=== PATIENT | female | born 1985 | race Caucasian/White ===

== ENCOUNTER 2016-08-17 23:25 | Outpatient (CLI) | payer BC ==
[~2016-08-17] VITALS: Ht 172.7 cm; Wt 83.6 kg
[2016-08-18] VITALS: BP 127/70
[2016-08-18] MEDS ORDERED: PREN-53 PO (00:50)
--- NOTE | 2016-08-18 11:33 | Physician Query-Final Dx ---
JANNET ARELLANO 08/18/16 1133: Clinic Account Progress/Dx Physician Query: Please give diagnosis Date of Service August 17, 2016 at 23:25 GREGOR JENNINGS MD 08/18/16 1224: Clinic Account Progress/Dx DIAGNOSIS: Diagnosis false labor JANNET ARELLANO August 18, 2016 11:33 GREGOR JENNINGS MD August 18, 2016 12:24
[2016-08-19] MEDS ORDERED: IBUP-1780 PO (07:54)
[2016-08-19] MEDS ORDERED: OXYC-465 PO (07:54)
[2016-08-19] MEDS ORDERED: DOCU100C37 PO (07:54)
== END 2016-08-18 00:55 | disposition home or self-care (01) ==
LOC: WSo 23:25 → LDRP 23:26 → WSo 08-18 00:55
PROVIDERS: ATTEND Obstetrics & Gynecology
DX: O47.1 False labor at or after 37 completed weeks of gestation (principal); Z3A.37 37 weeks gestation of pregnancy
CPT/HCPCS: 99213

== ENCOUNTER 2016-08-18 16:09 | Inpatient (IN) | payer BC ==
[2016-08-18] VITALS (13 sets, daily range): BP systolic 112–146; BP diastolic 60–78
[~2016-08-18] VITALS: Ht 172.7 cm; Wt 83.5 kg
[~2016-08-18 16:09] MED LIST: PREN-53 PO
[2016-08-18] MEDS ORDERED: D5 LR IV SOLUTION 1,000 ML IV SCH (17:08)
[2016-08-18] MEDS ORDERED: LACTATED RINGERS 1,000 ML IV SCH (17:15)
[2016-08-18] MEDS ORDERED: fentaNYL INJECTION 100 MCG/2 ML AMP ONE (17:25)
[2016-08-18] MEDS ORDERED: BUPIVACAINE 0.25% 30 ML (SENSORCAINE) VIAL ONE (17:25)
[2016-08-18] MEDS ORDERED: OXYTOCIN/NORMAL SALINE 500 ML IV ONE (17:26)
[2016-08-18 17:27] LABS: BASOPHILS % (AUTO) 0 % (0-10); EOSINOPHILS # (AUTO) 0.1 10^3/uL (0.0-0.3); EOSINOPHILS % (AUTO) 0 % (0-10); LYMPHOCYTES # (AUTO) 2.7 X 10^3 (1.0-4.0); LYMPHOCYTES % (AUTO) 20 % (12-44); MEAN CORPUSCULAR HEMOGLOBIN 29 PG (25-34); MEAN CORPUSCULAR HGB CONC 32 G/DL (32-36); MEAN CORPUSCULAR VOLUME 90 FL (80-99); MEAN PLATELET VOLUME 10.5 FL (7.4-10.4); MONOCYTES # (AUTO) 1.1 X 10^3 (0.0-1.0); MONOCYTES % (AUTO) 8 % (0-12); NEUTROPHILS # (AUTO) 9.5 X 10^3 (1.8-7.8); NEUTROPHILS % (AUTO) 71 % (42-75); PLATELET COUNT 316 10^3/uL (130-400); RED BLOOD COUNT 3.72 10^6/uL (4.35-5.85); RED CELL DISTRIBUTION WIDTH 12.7 % (10.0-14.5); WHITE BLOOD COUNT 13.5 10^3/uL (4.3-11.0)
[2016-08-18] MEDS ORDERED: LIDOCAINE/EPI 1%-1:200,000 (XYLOCAINE) 30 ML VIAL ONE (17:29)
[2016-08-18] MEDS ORDERED: LIDOCAINE/EPI 1%-1:200,000 (XYLOCAINE) 30 ML VIAL INJ ONE (17:30)
[2016-08-18] MEDS ORDERED: BENZOCAINE/MENTHOL (DERMOPLAST) 56 ML CAN TP ONE (18:14)
[2016-08-18] MEDS ORDERED: WITCH HAZEL(TUCKS) 40 EA JAR ONE (18:14)
[2016-08-18] MEDS ORDERED: OXYTOCIN/NORMAL SALINE 500 ML IV SCH (18:21)
--- NOTE | 2016-08-18 18:27 | History & Physical ---
History and Physical this patient is a 28-year-old white female with an EDC of [phone] putting her now at 37 weeks and 4 days. Her has been uncomplicated. Her history is significant for having had very rapid labors and deliveries. Her longest labor was 4 hours her last 2 were each less than 1 hour to was seen in clinic on this date found to be around for similar dilated and rene every 8-12 minutes. She is given strict precautions to present to labor and delivery for contractions persist. She did express increasing rene about 3 o'clock presented about 4 o'clock and has now already delivered. GBS culture was negative. She denied ruptured membranes or bleeding whenever she presented. Allergies are none Medications are vitamins Past medical history, past surgical history, obstetric history, family history, social histories are per the antepartum record HEENT exam is normal Neck is supple no lymphadenopathy no thyromegaly Abdomen is gravid soft nontender nondistended Streaming show clubbing cyanosis. There is no Homans sign. Pelvic exam on my arrival showed a cervix completely dilated over 90 percent effaced less than 1 to +2 station vertex presentation with intact bag. Amniotomy was performed patient delivered subsequently fairly promptly. See the delivery note for delivery details. Laboratory Tests 08/18/16 17:16 assessment and plan patient presented in active labor at 37 weeks and 4 days. She has delivered rapidly precipitously now. Plan at this point is for routine convalescence care and discharge home and one or 2 days. See the delivery note first delivery details. 37-4/7 weeks' gestation in active labor Allergies and Home Medications Allergies Coded Allergies: No Known Allergies (Verified Allergy, Unknown, 08/17/16) Home Medications [id number]/Iron Fumarate/FA/Dss 1 Each Tablet, 1 EACH PO DAILY, (Reported) GREGOR JENNINGS MD August 18, 2016 6:27 pm
[2016-08-18] MEDS ORDERED: TETANUS,DIPTH,PERTUSS P/F (BOOSTRIX) 0.5 ML VIAL IM ONE (18:30)
[2016-08-18] MEDS ORDERED: MEASLES,MUMPS,RUBELLA 1 EA INJ SC ONE (18:30)
[2016-08-18] MEDS ORDERED: oxyCODONE/APAP 10/325MG (PERCOCET 10) TABLET PO PRN (18:30)
[2016-08-18] MEDS ORDERED: BENZOCAINE/MENTHOL (DERMOPLAST) 56 ML CAN TP PRN (18:30)
[2016-08-18] MEDS: KETOROLAC 30 MG/ML VIAL IV SCH (19:14)
[2016-08-18] MEDS ORDERED: WITCH HAZEL(TUCKS) 40 EA JAR TOP PRN (19:15)
[2016-08-18] MEDS ORDERED: DOCUSATE SODIUM 100 MG (COLACE) CAP PO SCH (21:00)
[2016-08-18] MEDS ORDERED: CATHETER FLUSH 10 ML SYR IV SCH (22:00)
[2016-08-19] VITALS: BP 111/63
[2016-08-19] MEDS: KETOROLAC 30 MG/ML VIAL IV SCH ×2 (01:30→06:12)
[2016-08-19 06:19] VITALS: BP 115/77
--- NOTE | 2016-08-19 06:57 | OPERATIVE REPORT ---
DATE OF SERVICE: 08/18/2016 The patient delivered by precipitous term spontaneous vaginal delivery of viable female with Apgars of 8 and nine and 1 at five minutes respectively. Weight of 6 pounds 6 ounces. time was 1744. The came with 2 or 3 pushes within 2 hours of her presentation and patient went from 4 cm to complete in less than 2 hours. The infant was bulb suctioned on delivery of the head. Delivery was completed atraumatically. The was bulb suctioned again, warmed, dried and stimulated. The infant was quickly pink, moved all extremities, had a lusty cry, had excellent tone and reflexes. The cord was doubly clamped, father cut the cord, the baby was passed to mom's abdomen. The placenta delivered spontaneously. Schultze was normal with a 3-vessel cord. It was sent to pathology secondary to the precipitous delivery. There was a first-degree perineal laceration that was repaired under local anesthesia with a single suture of 3-0 Vicryl repeat. The edges of the laceration were quite shredded. The edges were freshened sharply and then reapproximated in a usual manner to a good anatomic result and good hemostasis. Sponge and needle counts were correct on completion of delivery and the repair. Estimated blood loss total was about 300 cc; this included about 150 cc that were expressed during minutes or so after delivery. The patient recovered in the LDR. The baby remained with the mom. Job ID: [id number] DocumentID: [id number] Dictated Date: 08/18/2016 18:30:49 Importer Exporter Date: 08/19/2016 06:56:58 Dictated By: GREGOR JENNINGS MD
--- NOTE | 2016-08-19 07:52 | Progress Note-Standard ---
Standard Progress Note Progress Notes/Assess & Plan Progress/Assessment & Plan this patient is without complaint. She is ambulating, voiding, tolerating oral intake well, pain is controlled, she denies chest pain, denies headache, denies nausea vomiting, denies shortness of breath. She is requesting discharge home. Vital Signs Date Time Temp Pulse Resp B/P (MAP) Pulse Ox O2 Delivery O2 Flow Rate FiO2 08/19/16 06:19 97.0 62 20 115/77 08/19/16 00:00 98.2 81 17 111/63 95 Room Air 08/18/16 20:00 98.4 83 17 115/67 97 Room Air 08/18/16 19:30 80 18 112/65 Room Air 08/18/16 19:15 71 18 115/68 Room Air 08/18/16 19:00 73 18 114/61 Room Air 08/18/16 18:30 76 18 130/60 Room Air 08/18/16 18:15 88 18 132/69 Room Air 08/18/16 18:00 97.1 99 18 127/60 Room Air 08/18/16 17:55 95 18 133/63 Room Air 08/18/16 17:51 108 18 128/61 Room Air 08/18/16 17:41 100 135/74 Room Air 08/18/16 17:11 102 18 127/70 Room Air 08/18/16 16:41 82 18 124/78 Room Air 08/18/16 16:09 97.2 86 18 146/68 98 Room Air I & O 08/19/16 07:00 Intake Total 1500 ml Balance 1500 ml vital signs are stable. Patient afebrile. Fundus is firm below the umbilicus nontender. Extremities show no clubbing or cyanosis. There is no Homans sign. Assessment and plan day number 1 status post term spontaneous vaginal delivery doing well. Plan is for discharge home with follow-up in clinic Final Diagnosis 37-4/7 weeks' spontaneous vaginal delivery GREGOR JENNINGS MD August 19, 2016 7:52 am
[2016-08-19] MEDS ORDERED: OXYC-465 PO (07:54)
[2016-08-19] MEDS ORDERED: DOCU100C37 PO (07:54)
[2016-08-19] MEDS ORDERED: IBUP-1780 PO (07:54)
--- NOTE | 2016-08-19 07:55 | Discharge Instructions ---
Discharge Instructions Discharge Medications New, Converted or Re-Newed RX: RX on Chart Patient Instructions Patient Instructions: as directed Return to The Hospital For: as directed Activity & Diet Discharge Diet: No Restrictions Activity as Tolerated: No Orders-Post D/C & Referrals Follow Up Appt: Call to make follow up appt. for patient in 4 weeks. Activity Per routine post vaginal delivery instructions. Please call in RX to patient pharmacy. Diet as tolerated Patient may shower or tub bathe as desired. GREGOR JENNINGS MD August 19, 2016 7:55 am
[2016-08-19 09:45] VITALS: BP 111/71
[2016-08-19 17:56] VITALS: BP 106/67
[2016-08-19] MEDS ORDERED: IBUPROFEN 800 MG (MOTRIN) TAB PO SCH (18:30)
== END 2016-08-19 20:15 | disposition home or self-care (01) | DRG 775 ==
LOC: WSo 16:09 → LDRP 16:09 → WSo 17:00 → LDRP 17:02
PROVIDERS: ADMIT Obstetrics & Gynecology; ATTEND Obstetrics & Gynecology
PROC: 10E0XZZ Delivery of Products of Conception, External Approach (ICD-10-PCS; principal; 2016-08-18)
PROC: 0HQ9XZZ Repair Perineum Skin, External Approach (ICD-10-PCS; 2016-08-18)
DX: O62.3 Precipitate labor (principal); O70.0 First degree perineal laceration during delivery; Z37.0 Single live birth; Z3A.37 37 weeks gestation of pregnancy
CPT/HCPCS: 36415; 85025; 86850; 86900; 86901; 99212

== ENCOUNTER 2019-02-24 09:59 | Inpatient (IN) | payer BC ==
[~2019-02-24] VITALS: Ht 172.7 cm; Wt 85.7 kg
[2019-02-24] VITALS (42 sets, daily range): BP systolic 105–152; BP diastolic 55–76
--- NOTE | 2019-02-24 09:50 | NUR ---
TRINIDAD BARROW V presented to unit via AMBULATION from ED, accompanied by , with c/o CRAMPING. TRINIDAD BARROW V weighed, gowned, voided, and to bed. EFHM and TOCO applied, VS taken. TRINIDAD BARROW V oriented to bed controls, call light, TV, heat, and A/C controls.
[~2019-02-24 09:59] MED LIST changes: +DOCU100C37 PO; +IBUP-1780 PO; +OXYC-465 PO
[2019-02-24] MEDS ORDERED: PREN1TAB79 PO (10:35)
[2019-02-24] MEDS ORDERED: D5 LR IV SOLUTION 1,000 ML IV SCH (11:16)
[2019-02-24] MEDS ORDERED: AMPICILLIN FOR IV USE 2,000 MG in WATER (STERILE) FOR INJECTION 14.8 ML IV SCH (11:16)
[2019-02-24] MEDS ORDERED: LIDOCAINE/EPI 2% 1:200,00 (XYLOCAINE) 10 ML VIAL INJ ONE (11:30)
[2019-02-24 12:08] LABS: BASOPHILS % (AUTO) 0 % (0-10); EOSINOPHILS # (AUTO) 0.1 10^3/uL (0.0-0.3); EOSINOPHILS % (AUTO) 0 % (0-10); HEMATOCRIT 37 % (35-52); LYMPHOCYTES % (AUTO) 17 % (12-44); MEAN CORPUSCULAR HEMOGLOBIN 30 PG (25-34); MEAN CORPUSCULAR HGB CONC 33 G/DL (32-36); MEAN CORPUSCULAR VOLUME 91 FL (80-99); MEAN PLATELET VOLUME 10.2 FL (7.4-10.4); MONOCYTES # (AUTO) 0.9 X 10^3 (0.0-1.0); MONOCYTES % (AUTO) 7 % (0-12); NEUTROPHILS # (AUTO) 9.2 X 10^3 (1.8-7.8); NEUTROPHILS % (AUTO) 76 % (42-75); PLATELET COUNT 306 10^3/uL (130-400); RED CELL DISTRIBUTION WIDTH 13.2 % (10.0-14.5); WHITE BLOOD COUNT 12.1 10^3/uL (4.3-11.0)
[2019-02-24] MEDS ORDERED: fentaNYL INJECTION 100 MCG/2 ML AMP ONE (12:49)
[2019-02-24] MEDS ORDERED: SUFENTA 0.6MCG/ML BUPIVA 0.125 100 ML ONE (12:50)
--- NOTE | 2019-02-24 12:52 | NUR ---
ELIU NARAYAN here for epidural placement. Procedure explained, consent reviewed and signed by anesthesia. Questions answered to patient's satisfaction. Time out taken to verify correct patient/procedure. Patient up to side of bed, assisted into sitting position. Betadine prep done x3 and sterile drape applied. Local done, see anesthesia record. Test dose given, see anesthesia record for drug and dosage. Epidural catheter secured in place. Epidural placement complete. Assisted back into bed, monitors adjusted. Epidural dosed, see anesthesia record. Epidural of Sufenta/Bupvicaine @ 12cc/hr stated per pump. Patient tolerated procedure well.
[2019-02-24] MEDS ORDERED: LACTATED RINGERS 1,000 ML IV SCH (13:18)
[2019-02-24] MEDS ORDERED: LIDOCAINE PF 2% 5 ML (XYLOCAINE) VIAL ONE (13:20)
[2019-02-24] MEDS ORDERED: BUPIVACAINE 0.25% 30 ML (SENSORCAINE) VIAL ONE (13:20)
[2019-02-24] MEDS ORDERED: NALOXONE 0.4 MG/ML 1 ML (NARCAN) VIAL IV PRN (13:30)
[2019-02-24] MEDS ORDERED: diphenhydrAMINE 50 MG/ML INJ (BENADRYL) IV PRN (13:30)
[2019-02-24] MEDS ORDERED: ONDANSETRON 4 MG/2 ML (SDV) Z0FRAN IV PRN (13:30)
[2019-02-24] MEDS ORDERED: EPIDURAL (SUFENTA 0.6MCG/ML BUPIVA 0.125%) 100 ML BAG EPI PRN (13:30)
[2019-02-24] MEDS ORDERED: OXYTOCIN/NORMAL SALINE 500 ML IV SCH ×2 (13:43→17:57)
[2019-02-24] MEDS ORDERED: AMPICILLIN FOR IV USE 1,000 MG in WATER (STERILE) FOR INJECTION 7.4 ML IV SCH ×2 (13:45→15:30)
[2019-02-24] MEDS ORDERED: AMPICILLIN FOR IV USE 2,000 MG in WATER (STERILE) FOR INJECTION 14.8 ML IV ONE (13:45)
--- NOTE | 2019-02-24 13:51 | History & Physical ---
History and Physical Date Seen by Provider: Feb 24, 2019 Time Seen by Provider: 13:48 This patient is a 32-year-old white female with an EDC of [phone] putting her at 37+ weeks gestation. She presented with complaints of contractions pain and pressure. Her history is significant for rapid labors and for a GBS positive culture after 35 weeks gestation. She denies rupture membranes or bleeding. She indicates that the pain and pressure she is having is identical to her labor symptoms with her past pregnancies. She has had 2 other deliveries at 37 weeks gestation as well. Allergies are none Medications are vitamins Medical social and surgical histories are per the antepartum record HEENT exam is normal Neck is supple no lymphadenopathy no thyromegaly Abdomen is gravid soft nontender nondistended Extremities show no clubbing cyanosis. There is no Homans sign. Pelvic exam shows a cervix 57 Ms. dilated 70 percent effaced -1 to -2 station vertex presentation with a somewhat bulging bag. Amniotomy is performed with release of clear fluid. Laboratory Tests 02/24/19 12:00 monitor shows contractions somewhat irregular every 3-8 minutes. heart rate pattern is reactive and reassuring but has had episodes of suspicious decelerations. Assessment and plan term at 37+ weeks gestation in labor with GBS positive culture. Patient has been started on ampicillin for GBS prophylaxis. We anticipate a vaginal delivery. Plans preparations will be in place for if needed 37+ weeks' gestation in labor Allergies and Home Medications Allergies Coded Allergies: No Known Allergies (Verified Allergy, Unknown, 08/17/16) Home Medications Vit W-Ca,Fe,FA(<1 mg) 1 Each Tablet, 1 TAB PO DAILY, (Reported) Patient Home Medication List Home Medication List Reviewed: Yes GREGOR JENNINGS MD Feb 24, 2019 13:51 POS
[2019-02-24] MEDS ORDERED: DOCU-143 PO (13:55)
[2019-02-24] MEDS ORDERED: IBUP-1780 PO (13:55)
[2019-02-24] MEDS ORDERED: OXYC1TAB87 PO (13:55)
--- NOTE | 2019-02-24 13:55 | Discharge Instructions ---
Discharge Instructions Discharge Medications New, Converted or Re-Newed RX: RX on Chart Patient Instructions Return to The Hospital For: As directed Activity & Diet Discharge Diet: No Restrictions Activity as Tolerated: No Orders-Post D/C & Referrals Follow Up Appt: Call to make follow up appt. for patient in 4 weeks. Activity Per routine post vaginal delivery instructions. Please call in RX to patient pharmacy. Diet as tolerated Patient may shower or tub bathe as desired. GREGOR JENNINGS MD Feb 24, 2019 13:55 POS
[2019-02-24] MEDS ORDERED: CATHETER FLUSH 10 ML SYR IV SCH (14:00)
[2019-02-24] MEDS ORDERED: LIDOCAINE/EPI 2% 1:200,00 (XYLOCAINE) 10 ML VIAL ONE (16:55)
--- NOTE | 2019-02-24 17:30 | NUR ---
FFU/2 LT LOCHIA NOTED, VSS, PAT-CARE COMPLETED, PAD, PANTIES AND ICE PACK APPLIED, PT REPOSITIONED IN BED, EPIDURAL CATH REMOVED, BLACK TIP NOTED. PT DENIES C/O, INFANT IN MOTHERS ARMS.
[2019-02-24] MEDS ORDERED: IBUPROFEN 800 MG (MOTRIN) TAB PO ONE (17:38)
[2019-02-24] MEDS: IBUPROFEN 800 MG (MOTRIN) TAB PO SCH ×2 (17:45→23:34)
[2019-02-24] MEDS ORDERED: BENZOCAINE/MENTHOL (DERMOPLAST) 56 ML CAN TP PRN (18:00)
[2019-02-24] MEDS ORDERED: KETOROLAC 30 MG/ML VIAL IVP SCH (18:00)
[2019-02-24] MEDS ORDERED: TETANUS,DIPTH,PERTUSS P/F (BOOSTRIX) 0.5 ML VIAL IM ONE (18:00)
[2019-02-24] MEDS ORDERED: oxyCODONE/APAP 5/325MG (PERCOCET 5) TABLET PO PRN (18:00)
[2019-02-24] MEDS ORDERED: MEASLES,MUMPS,RUBELLA 1 EA INJ SC ONE (18:00)
[2019-02-24] MEDS ORDERED: ONDANSETRON 4 MG/2 ML (SDV) Z0FRAN IVP PRN (18:00)
--- NOTE | 2019-02-24 19:00 | NUR ---
VSS, FFU/2 LT LOCHIA NOTED, PAD AND PANTIES CHANGED, NO DISTRESS NOTED.
[2019-02-24] MEDS: DOCUSATE SODIUM 100 MG (COLACE) CAP PO SCH (19:53)
--- NOTE | 2019-02-24 20:00 | NUR ---
assessment completed. pt ready to transfer to room. pt assisted to w'c and taken to room 308. pt ambulated to the bathroom. pericare completed. pt ambulated to bed. info papers discussed. call light within reach. pt denies any needs. will continue to monitor.
[2019-02-25 04:01] VITALS: BP 107/64
--- NOTE | 2019-02-25 04:18 | OPERATIVE REPORT ---
DATE OF SERVICE: 02/24/2019 The patient delivered by term spontaneous vaginal delivery at 37 and 3/7 weeks gestation a viable female infant with Apgars of 8 and 9 at 1 and 5 minutes respectively, weight of 6 pounds and 12 ounces. time of 1704 and an arterial cord blood gas of 7.29. The was delivered over a second-degree perineal laceration under epidural augmented by local in her perineum. The delivery was atraumatic. The was bulb suctioned on delivery of the head and again on completion of the delivery. The umbilical cord was doubly clamped when it was pulseless. The father cut the cord, the baby was passed to mom's abdomen. Placenta delivered spontaneously Charles after the cord bloods were obtained. The placenta was sent to pathology for permanent section due to the patient's GBS positive status. The cervix, vagina, rectum, and perineum were examined and found intact, except for the second-degree perineal laceration that was repaired in this usual manner with a single suture of 3-0 Vicryl Rapide after freshening the edges of the somewhat torn and shredded epithelium on the defect. Estimated blood loss for the delivery was around 200 mL. The patient tolerated the procedure well and remained in the LDR for recovery. The baby remained with the mom. Job ID: [id number] DocumentID: [id number] Dictated Date: 02/24/2019 17:29:34 Trail Maintenance Worker Date: 02/25/2019 04:17:44 Dictated By: GREGOR JENNINGS MD
[2019-02-25] MEDS: IBUPROFEN 800 MG (MOTRIN) TAB PO SCH ×3 (06:04→18:40)
--- NOTE | 2019-02-25 08:47 | Progress Note ---
Standard Progress Note Progress Notes/Assess & Plan Date Seen by a Provider: Feb 25, 2019 Time Seen by a Provider: 08:45 Progress/Assessment & Plan Patient is without complaint. She is ambulating, voiding, tolerating oral intake well has good pain control. Vital Signs 02/24/19 02/24/19 02/25/19 16:45 17:00 04:01 Temp 36.5 Pulse 78 Resp 20 B/P (MAP) 107/64 (78) Pulse Ox 98 O2 Delivery Room Air O2 Flow Rate 15.00 Vital signs are stable. Patient is afebrile. Fundus is firm below the umbilicus and nontender. Extremities show no clubbing cyanosis. There is no Homans sign. Assessment and plan day number 1 doing well plan is for routine convalescenT care today and discharge home tomorrow Final Diagnosis Delivery 37 week spontaneous vaginal delivery GREGOR JENNINGS MD Feb 25, 2019 08:46 POS
--- NOTE | 2019-02-25 08:50 | NUR ---
Dr Sylvester to see patient.
[2019-02-25 09:26] VITALS: BP 110/76
[2019-02-25] MEDS: DOCUSATE SODIUM 100 MG (COLACE) CAP PO SCH ×2 (09:28→18:40)
--- NOTE | 2019-02-25 09:31 | Anesthesia-Regional Post-Op ---
Regional Patient Condition Mental Status: Alert, Oriented x3 Circulation: Same as Pre-Op Headache: Absent Sensation: Full Recovery Motor Block: Absent Post Op Complications Complications None Follow Up Care/Instructions Patient Instructions None needed. Anesthesia/Patient Condition Patient is doing well, no complaints, stable vital signs, no apparent adverse anesthesia problems. No complications reported per nursing. LANRE SLATER CRNA Feb 25, 2019 09:31 POS
[2019-02-25 15:42] VITALS: BP 100/62
--- NOTE | 2019-02-25 18:30 | NUR ---
Discharge instructions explained, signed and copy to patient. pt verbalized understanding of discharge instructions. prescriptions called to pharmacy and handed to pt. pt verbalized understanding of medications and questions answered.
[2019-02-25 19:45] VITALS: BP 100/62
--- NOTE | 2019-02-25 19:45 | NUR ---
Pt discharge home with s/o and baby. Accompanied by tech. pt assisted to pvt car. no distress noted. pt will follow up in the clinic.
== END 2019-02-25 19:45 | disposition home or self-care (01) | DRG 807 ==
LOC: WSo 09:59 → LDRP 09:59 → WSo 11:15 → LDRP 20:04
PROVIDERS: ADMIT Obstetrics & Gynecology; ATTEND Obstetrics & Gynecology
PROC: 10E0XZZ Delivery of Products of Conception, External Approach (ICD-10-PCS; principal; 2019-02-24)
PROC: 0KQM0ZZ Repair Perineum Muscle, Open Approach (ICD-10-PCS; 2019-02-24)
DX: O99.824 Streptococcus B carrier state complicating childbirth (principal); Z37.0 Single live birth; O70.1 Second degree perineal laceration during delivery; Z28.21 Immunization not carried out because of patient refusal; Z3A.37 37 weeks gestation of pregnancy
CPT/HCPCS: 36415; 85025; 86850; 86900; 86901